=== PATIENT | male | born 1960 | race African-American/Black ===

== ENCOUNTER 2019-04-23 14:51 | Emergency (ER) | payer MEDICAID ==
[~2019-04-23] VITALS: Ht 180.3 cm; Wt 94.7 kg
[2019-04-23] MEDS ORDERED: CLOP75TA3 PO (15:09)
[2019-04-23] MEDS ORDERED: FURO40 PO (15:09)
[2019-04-23] MEDS ORDERED: ATOR40TA28 PO (15:09)
[2019-04-23] MEDS ORDERED: LISI-662 PO (15:09)
[2019-04-23] MEDS ORDERED: METO50 PO (15:09)
[2019-04-23] MEDS ORDERED: ASPI-556 PO (15:09)
[2019-04-23] MEDS ORDERED: QUET25TA PO (15:17)
[2019-04-23] MEDS ORDERED: ESCI10TA PO (15:17)
[2019-04-23] MEDS ORDERED: HYDR-2924 PO (15:17)
[2019-04-23] MEDS ORDERED: SODIUM CHLORIDE 0.9% 1,000 ML IV ONE (15:30)
[2019-04-23 15:48] LABS: BASOPHILS % (AUTO) 0.6 % (0.0-2.0); EOSINOPHILS % (AUTO) 0.8 % (1.0-6.0); HEMATOCRIT 33.9 % (41-53); HEMOGLOBIN 12.3 g/dL (13.5-17.5); LYMPHOCYTES # (AUTO) 1.1 K/uL (1.0-4.8); LYMPHOCYTES % (AUTO) 26.8 % (22.0-44.0); MEAN CORPUSCULAR HEMOGLOBIN 30.6 pg (26.0-34.0); MEAN CORPUSCULAR HGB CONC 36.4 G/dL (31.0-37.0); MEAN CORPUSCULAR VOLUME 84 fL (80-100); MONOCYTES # (AUTO) 0.4 K/uL (0.1-1.0); NEUTROPHILS # (AUTO) 2.4 K/uL (1.8-7.7); NEUTROPHILS % (AUTO) 61.8 % (40.0-70.0); PLATELET COUNT (AUTO) 165 K/uL (150-450); RED BLOOD CELL COUNT(AUTO) 4.03 MIL/uL (4.50-5.90); RED CELL DISTRIBUTION WIDTH 12.1 % (11.5-14.5)
[2019-04-23 15:57] LABS: CALCIUM, TOTAL 9.1 mg/dL (8.8-10.5); CREATININE 1.72 mg/dL (0.60-1.30); POTASSIUM 3.4 mmol/L (3.5-5.1)
[2019-04-23] MEDS ORDERED: CloNIDine HCL 0.2 MG TABLET PO ONE (16:15)
[2019-04-23 17:26] VITALS: BP 185/106
== END 2019-04-23 18:22 | disposition home or self-care (01) ==
LOC: EMS 14:51
DX: E11.65 Type 2 diabetes mellitus with hyperglycemia (principal); I10 Essential (primary) hypertension; Z86.73 Personal history of transient ischemic attack (TIA), and cerebral infarction without residual deficits; Z79.899 Other long term (current) drug therapy; Z79.82 Long term (current) use of aspirin
CPT/HCPCS: 36415; 71045; 80048; 81002; 82962; 85025; 93005; 96360; 99284; J7030